=== PATIENT | female | born 1960 | race Caucasian/White ===

== ENCOUNTER 2017-03-04 20:17 | Emergency (ER) | payer OTHER ==
[~2017-03-04] VITALS: Ht 154.9 cm; Wt 107.5 kg
[~2017-03-04 20:17] MED LIST: ATORVASTATIN CA20 MG PO; COREG 3.125M3.125 MG PO; GLIPIZIDE PO; GLUCOPHAGE1000 MG PO; GLUCOPHAGE500 MG PO; LASIX20 MG PO; LEVEMIR 10100 UNITS/ SC; LOPRESSOR 6.26.25 MG PO; MAG-OX 400400 MG PO; NOVOLIN R1000 UNIT2 SC; NOVOLOG100 U/ML SC; PLAVIX 75MG TAB75 MG PO; PRILOSEC 20MG C20 MG PO; PRINIVIL10 MG PO; ROCEPHIN2000 MG IV; ROXICODONE5 MG PO; UNASYN 3000MG3000 MG IV; VANCOMYCIN 11000 MG IV
--- NOTE | 2017-03-04 20:54 | ED DYSPNEA/ASTHMA COMPLAINT ---
History of Present Illness General Chief Complaint: Dyspnea (COPD, CHF, Other) Stated Complaint: SOB, SWELLING Source: patient, family Exam Limitations: no limitations Vital Signs & Intake/Output Vital Signs & Intake/Output Vital Signs Date Time Temp Pulse Resp B/P B/P Pulse O2 O2 Flow FiO2 Mean Ox Delivery Rate 03/05 0235 97.5 82 20 134/82 95 Room Air 03/04 2300 98 Room Air 03/04 2024 98.0 91 18 143/88 94 Room Air ED Intake and Output 03/05 0000 03/04 1200 Intake Total Output Total Balance Patient 237 lb Weight Weight Reported by Patient Measurement Method Allergies Coded Allergies: NO KNOWN ALLERGIES (04/29/14) Reconcile Medications Atorvastatin Calcium (Lipitor) 20 MG TABLET 20 MG PO 1700 CHOLESTEROL Carvedilol (Coreg) 6.25 MG TABLET 1 TAB PO BID HEART FAILURE CEFTRIAXONE SODIUM (Rocephin) 2 GM VIAL 2,000 MG IV 1999 OSTEOMYELITIS Clopidogrel Bisulfate (Plavix) 75 MG TABLET 75 MG PO DAILY PVD Furosemide (Lasix) 20 MG TABLET 1 TAB PO BID EDEMA TWICE A DAY ON SATURDAY/SATURDAY... THEN ONCE A DAY ON SATURDAY AND SATURDAY Furosemide (Lasix) 20 MG TABLET 60 MG PO BID EDEMA Insulin Aspart, Recombinant (Novolog) 100 U/ML BILLIE 0 UNITS SC TIDAC/HS DM SLIDING SCALE Insulin Detemir (Levemir) 100 UNIT/1 ML VIAL 20 UNITS SC BID DM Lisinopril (Prinivil) 10 MG TABLET 20 MG PO DAILY HTN Metformin Hydrochloride (Glucophage) 1,000 MG TAB 1,000 MG PO 0800,1700 DM Omeprazole (Prilosec) 20 MG CAPSULE.DR 20 MG PO DAILY AC GERD Omeprazole (Prilosec) 20 MG CAPSULE.DR 20 MG PO DAILY AC GERD OXYCODONE HCL (Roxicodone) 5 MG TABLET 5 MG PO Q6 PRN PAIN Vancomycin HCl (Vancomycin 1 Gram (ER)) 1 GM VIAL 1 GM IV Q12 OSTEOMYELITIS Triage Note: PT TO ED C/O WATER RETENTION WITH ABBI LEG SWELLING AND SOB WITH EXERTION FOR A FEW WEEKS. HAS AN APPOINTMENT WITH DR SYLVESTER ON SATURDAY. LASIX REDUCED TO "HALF A PILL EVERY OTHER DAY" R/T KIDNEY FXN A COUPLE OF WEEKS AGO. DENIES CHEST PAIN, DENIES SOB AT REST. PMH OF IDDM. SUGARS CONTROLLED Triage Nurses Notes Reviewed? yes Onset: Gradual Duration: week(s): Timing: recent history Severity: moderate Activities at Onset: none Prior Episodes/Possible Cause: no prior episodes Modifying Factors: Improves With: rest. Associated Symptoms: shortness of breath HPI: 56 yo woman h/o lower extremity edema for the past three weeks, symmetric, "and now I'm swollen all the up to my abdomen... I feel like the water is filling up my abdomen. She notes that she recently decreased lasix due to worsening kidney function. Past History Travel History Traveled to [place] past 21 day No Medical History Any Pertinent Medical History? see below for history Cardiovascular: hypertension, hyperlipidemia Gastrointestinal: GERD, umbilical hernia Endocrine: diabetes History of MRSA: Yes History of VRE: No History of CDIFF: No Pneumonia Vaccine: 08/18/12 Surgical History Surgical History: non-contributory Psychosocial History Who do you live with Patient/Self Services at Home None What is your primary language Brazilian Tobacco Use: Never used ETOH Use: occasional use Illicit Drug Use: denies illicit drug use Family History Family History, If Any: MOTHER FH: CAD (coronary artery disease) FATHER FH: diabetes mellitus FH: hypertension FH: lung cancer Hx Contributory? No Review of Systems Review of Systems Constitutional: Reports: no symptoms. EENTM: Reports: no symptoms. Respiratory: Reports: no symptoms. Cardiovascular: Reports: no symptoms. GI: Reports: no symptoms. Genitourinary: Reports: no symptoms. Musculoskeletal: Reports: no symptoms. Skin: Reports: no symptoms. Neurological/Psychological: Reports: no symptoms. Hematologic/Endocrine: Reports: no symptoms. Immunologic/Allergic: Reports: no symptoms. All Other Systems: Reviewed and Negative Physical Exam Physical Exam General Appearance: well developed/nourished, no apparent distress Head: atraumatic, normal appearance Eyes: Bilateral: normal appearance. Ears, Nose, Throat: normal pharynx, normal ENT inspection Neck: normal inspection, supple, full range of motion Respiratory: normal breath sounds, chest non-tender, no respiratory distress, quiet respiration, lungs clear Cardiovascular: regular rate/rhythm Gastrointestinal: normal bowel sounds, soft, non-tender, no organomegaly, subcutaneous edema Core Measures ACS in differential dx? No Severe Sepsis Present: No Septic Shock Present: No Progress Differential Diagnosis: dependent edema vs chf vs other. Plan of Care: Orders Procedure Date/time Status TROPONIN LEVEL 05/02 0108 Complete EKG 03/05 108 Active TROPONIN LEVEL 03/04 2047 Complete COMPREHENSIVE METABOLIC PANEL 03/04 2047 Complete CBC WITHOUT DIFFERENTIAL 03/04 2047 Complete B-TYPE NATRIURETIC PEP (BNP) 03/04 2047 Complete EKG 03/04 2045 Active Laboratory Tests 03/05/17 0116: Troponin I < 0.01 03/04/172054: Anion Gap 9, Estimated GFR > 60, BUN/Creatinine Ratio 32.5 H, Glucose 95, Calcium 9.2, Total Bilirubin 1.4 H, AST 25, ALT 38, Alkaline Phosphatase 94, Troponin I < 0.01, Sxz-B-Gvljtsuiekl Pept 3140 H, Total Protein 7.1, Albumin 3.7, Globulin 3.4, Albumin/Globulin Ratio 1.1, CBC w Diff NO MAN DIFF REQ, RBC 4.64, MCV 86.8, MCH 28.1, RDW 15.2 H, MPV 10.1, Gran % 75.7 H, Lymphocytes % 13.3 L, Monocytes % 6.8, Eosinophils % 3.3, Basophils % 0.9, Absolute Granulocytes 5.6, Absolute Lymphocytes 1.0 L, Absolute Monocytes 0.5, Absolute Eosinophils 0.2, Absolute Basophils 0.1, PUBS MCHC 32.4 L Diagnostic Imaging: Viewed by Me: Radiology Read. Discussed w/RAD: Radiology Read. CXR Impression: no acute abnormality, no infiltrates, normal size heart, normal mediastinum Initial ED EKG: normal axis, normal intervals, normal p-waves, normal QRS complex, normal sinus rhythm Comments: PATIENT: GOLDY MCCANN PRESENT AGE: 56 PATIENT ACCOUNT NO: [id number] : 60 LOCATION: [facility] ORDERING PHYSICIAN: DANNA WALKER MD SERVICE DATE: 03/04/17 EXAM TYPE: RAD - XRY-PORTABLE CHEST XRAY EXAMINATION: XR PORTABLE CHEST CLINICAL INFORMATION: Shortness of breath. Lower extremity edema. COMPARISON: Portable chest x-ray 07/07/2014 TECHNIQUE: Portable frontal view of the chest was obtained. 10:52 PM FINDINGS: No significant abnormality is noted involving the heart, lungs, mediastinum, bony thorax or soft tissues. IMPRESSION: Unremarkable examination. DICTATED BY: CHEN FISH MD DATE/TIME DICTATED:03/04/172305 HOURLY SIGN LANGUAGE INTERPRETER:GELY DATE/TIME TRANSCRIBED:03/04/172305 CONFIDENTIAL, DO NOT COPY WITHOUT APPROPRIATE AUTHORIZATION. <Electronically signed in Other Vendor System> SIGNED BY: CHEN FISH MD 03/04/17 2310 Departure Departure Disposition: HOME OR SELF CARE Condition: Stable Clinical Impression Primary Impression: Edema Referrals: UNKNOWN (PCP/Family) Departure Forms: Customer Survey General Discharge Information Prescriptions: Current Visit Scripts Furosemide (Lasix) 1 TAB PO BID #6 TAB TWICE A DAY ON SATURDAY/SATURDAY... THEN ONCE A DAY ON SATURDAY AND SATURDAY Comments 03/05/17, 0:16... bedside u/s by ED ... no obvious dvt in lower extremities 03/05/17, 2:21am... pt ambulated without desaturating... trop #2.. neg... ekg benign. 03/05/17, 3:34am... pt feeling well in ED, she has urinated several times. She is able to ambulate without problem. She is safe for discharge and will follow up with dr. sylvester on saturday. Critical Care Note Critical Care Note Critical Care Time: non-applicable
[2017-03-04 21:07] LABS: ABSOLUTE BASOPHIL COUNT 0.1 /CUMM (0.0-0.2); ABSOLUTE EOSINOPHIL COUNT 0.2 /CUMM (0.0-0.7); ABSOLUTE GRANULOCYTE CT 5.6 /CUMM (1.4-6.5); ABSOLUTE MONOCYTE COUNT 0.5 /CUMM (0.10-0.60); BASOPHIL % 0.9 % (0.0-2.0); EOSINOPHIL % 3.3 % (0-5); GRANULOCYTE % 75.7 % (42.2-75.2); HEMATOCRIT 40.3 % (37-47); MEAN CORPUSCULAR HGB 28.1 PG (27.0-31.0); MEAN CORPUSCULAR HGB CONC 32.4 G/DL (33.0-37.0); MEAN CORPUSCULAR VOLUME 86.8 FL (81.0-99.0); MEAN PLATELET VOLUME 10.1 FL (7.4-10.4); PLATELET COUNT 154 /CUMM (130-400); RBC DISTRIBUTION WIDTH 15.2 % (11.5-14.5); RED BLOOD CELL CT 4.64 /CUMM (4.20-5.40); WHITE BLOOD CELL COUNT 7.4 /CUMM (4.8-10.8)
--- NOTE | 2017-03-04 23:10 | RADIOLOGY REPORT ---
EXAMINATION: XR PORTABLE CHEST CLINICAL INFORMATION: Shortness of breath. Lower extremity edema. COMPARISON: Portable chest x-ray 07/07/2014 TECHNIQUE: Portable frontal view of the chest was obtained. 10:52 PM FINDINGS: No significant abnormality is noted involving the heart, lungs, mediastinum, bony thorax or soft tissues. IMPRESSION: Unremarkable examination.
[2017-03-04] MEDS ORDERED: LASIX20 M1 PO (23:55)
[2017-03-05 03:35] VITALS: BP 132/84
== END 2017-03-05 03:35 ==
LOC: ERH 20:17
PROVIDERS: Pediatrics
DX: R60.9 Edema, unspecified (principal)
CPT/HCPCS: 93005; 93010